=== PATIENT | male | born 1965 | race Caucasian/White ===

== ENCOUNTER 2017-01-14 20:52 | Emergency (ER) | payer OTHER ==
[2017-01-14 21:02] VITALS: BP 153/80; PULSE 68; RESP 20; TEMP 97.5; O2SAT 96; BMI 24.2
[2017-01-14] MEDS ORDERED: Albuterol-Ipratrop 3 mg / 0.5 (3 ml) UD IH STA (21:50)
--- NOTE | 2017-01-14 22:34 | ED PDOC ---
Arrival/HPI - General Chief Complaint: Cough, Cold, Congestion Time Seen by Provider: 01/14/17 21:32 Historian: Patient - History of Present Illness Narrative History of Present Illness (Text): 01/15/17 00:40 51 yo M w/ no PMH, c/o 2 day h/o dry cough, unrelieved with OTC cough medication. Denies any SOB, chest pain, fever, chills, recent travel, back pain , N/V, sore throat or rash. States that he is not a smoker. Past Medical History - Provider Review Nursing Documentation Reviewed: Yes - Cardiac Hx Cardiac Disorders: No - Pulmonary Hx Respiratory Disorders: No - Neurological Hx Neurological Disorder: No - HEENT Hx HEENT Disorder: No - Renal Hx Renal Disorder: No - Endocrine/Metabolic Hx Endocrine Disorders: No - Hematological/Oncological Hx Blood Disorders: No - Integumentary Hx Dermatological Disorder: No - Musculoskeletal/Rheumatological Hx Musculoskeletal Disorders: No - Gastrointestinal Hx Gastrointestinal Disorders: No - Genitourinary/Gynecological Hx Genitourinary Disorders: No - Psychiatric Hx Psychophysiologic Disorder: No Hx Substance Use: No Family/Social History - Physician Review Nursing Documentation Reviewed: Yes Family/Social History: No Known Family HX Smoking Status: Heavy Smoker > 10 Cigarettes Daily Hx Alcohol Use: Yes Hx Substance Use: No Allergies/Home Meds Allergies/Adverse Reactions: Allergies No Known Allergies Allergy (Verified 01/14/17 21:03) Review of Systems - Review of Systems Constitutional: Normal. absent: Fatigue, Weight Change, Fevers ENT: Normal. absent: Sore Throat, Rhinorrhea, Sinus Congestion Respiratory: Normal, Cough. absent: SOB, Sputum, Wheezing Cardiovascular: Normal. absent: Chest Pain, Palpitations, Edema Musculoskeletal: Normal. absent: Arthralgias, Back Pain, Neck Pain Skin: Normal. absent: Rash, Pruritis, Skin Lesions Physical Exam - Physical Exam Narrative Physical Exam (Text): 01/15/17 00:42 GENERAL APPEARANCE: Patient is awake, alert, oriented x 3, in no acute distress. SKIN: Warm, dry; (-) cyanosis. EYES: (-) conjunctival pallor. ENMT: Mucous membranes moist. Airway patent: (-) stridor. Pharynx: (-) swelling, (-) erythema, (-) exudate. NECK: (-) tenderness, (-) stiffness, (-) lymphadenopathy. CHEST AND RESPIRATORY: (-) rhonchi, (-) rales, (-) wheezes, (-) pleural rub; breath sounds equal bilaterally. HEART AND CARDIOVASCULAR: (-) irregularity; (-) murmur, (-) gallop. ABDOMEN AND GI: Soft; (-) tenderness. EXTREMITIES: (-) deformity; (-) edema. NEURO AND PSYCH: Mental status as above. Cranial nerves grossly intact; strength symmetric. Vital Signs Temp Pulse Resp BP Pulse Ox 01/14/17 21:03 97.5 F L 68 20 153/80 H 96 01/14/17 21:02 97.5 F L 68 20 153/80 H 96 Medical Decision Making ED Course and Treatment: 01/15/17 00:43 51 yo M w/ no PMH, c/o 2 day h/o dry cough, unrelieved with OTC cough medication. Plan : - duoneb On re-evaluation, patient is sitting comfortably in no acute distress, remains awake, alert and oriented x3. Patient reports no SOB or chest pain at this time. Patient's breathing is easy and unlabored, speaking in full sentences. Lungs are CTA with no wheezing and no rhonchi. Dx of cough, bronchitis d/w the patient. Advised to follow up with primary care physician in 1-2 days without fail. Advised to take medication as prescribed. Return to the emergency room at any time for any new or worsening symptoms. Patient states he fully agrees with and understands discharge instructions. States that he agrees with the plan and disposition. Verbalized and repeated discharge instructions and plan. I have given the patient opportunity to ask any additional questions. 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 Disposition/Present on Arrival - Present on Arrival Any Indicators Present on Arrival: No History of DVT/PE: No History of Uncontrolled Diabetes: No Urinary Catheter: No History of Decub. Ulcer: No History Surgical Site Infection Following: None - Disposition Have Diagnosis and Disposition been Completed?: Yes Diagnosis: Cough, Bronchitis Disposition: HOME/ ROUTINE Disposition Time: 22:15 Patient Plan: Discharge Condition: STABLE Discharge Instructions (ExitCare): Acute Bronchitis (ED) Print Language: DIVEHI Additional Instructions: Thank you for letting us take care of you today. You were treated for cough, bronchitis. The emergency medical care you received today was directed at your acute symptoms. If you were prescribed any medication, please fill it and take as directed. It may take several days for your symptoms to resolve. Return to the Emergency Department if your symptoms worsen, do not improve, or if you have any other problems. Please contact your doctor in 2 days for re-evaluation and follow up. Bring any paperwork you were given at discharge with you along with any medications you are taking to your follow up visit. Our treatment cannot replace ongoing medical care by a primary care provider (PCP) outside of the emergency department. Thank you for allowing the [facility] team to be part of your care today. Prescriptions: Albuterol 0.083% [Albuterol Sulfate 3 Ml] 3 ml IH Q4 #100 neb Nebulizer [Aeroeclipse II] 1 each MC DAILY #1 each [facility]: [facility] [[facility] Care Provider[facility] - Follow up with primary Forms: [employer] (Telugu), WORK NOTE
== END 2017-01-14 22:55 | disposition home or self-care (01) ==
LOC: ED 20:52
DX: J40 Bronchitis, not specified as acute or chronic (principal); F17.210 Nicotine dependence, cigarettes, uncomplicated

== ENCOUNTER 2018-02-10 19:57 | Emergency (ER) | payer OTHER ==
[2018-02-10 19:58] VITALS: BMI 24.2
[2018-02-10 20:21] VITALS: RESP 18
--- NOTE | 2018-02-10 20:22 | ED PDOC ---
Arrival/HPI - General Chief Complaint: Groin Pain Time Seen by Provider: 02/10/18 19:59 Historian: Patient - History of Present Illness Narrative History of Present Illness (Text): 02/10/18 20:20 52 y/o male, no significant pmh, nkda, c/o rt. groin pain x 3-4 days after heavy lifting. Aching pain, aggravated by coughing, no urinary symptoms, no testicular pain, no night sweat, no rash, no night sweat, no dizziness, no nausea/vomiting/diarrhea, no change in vision, eating and drinking well, no other medical or psychological complaints. Past Medical History - Provider Review Nursing Documentation Reviewed: Yes - Cardiac Hx Cardiac Disorders: No - Pulmonary Hx Respiratory Disorders: No - Neurological Hx Neurological Disorder: No - HEENT Hx HEENT Disorder: No - Renal Hx Renal Disorder: No - Endocrine/Metabolic Hx Endocrine Disorders: No - Hematological/Oncological Hx Blood Disorders: No - Integumentary Hx Dermatological Disorder: No - Musculoskeletal/Rheumatological Hx Musculoskeletal Disorders: No - Gastrointestinal Hx Gastrointestinal Disorders: No - Genitourinary/Gynecological Hx Genitourinary Disorders: No - Psychiatric Hx Psychophysiologic Disorder: No Hx Substance Use: No - Anesthesia Hx Anesthesia: No Hx Anesthesia Reactions: No Hx Malignant Hyperthermia: No Family/Social History - Physician Review Nursing Documentation Reviewed: Yes Family/Social History: Unknown Family HX Smoking Status: Former Smoker Hx Alcohol Use: Yes Frequency of alcohol use: Socially Hx Substance Use: No Allergies/Home Meds Allergies/Adverse Reactions: Allergies No Known Allergies Allergy (Verified 01/14/17 21:03) Review of Systems - Review of Systems Constitutional: absent: Fevers Eyes: absent: Vision Changes ENT: absent: Hearing Changes Respiratory: absent: SOB, Cough Cardiovascular: absent: Chest Pain Gastrointestinal: absent: Abdominal Pain, Nausea, Vomiting Genitourinary Male: Other (+rt. groin pain). absent: Dysuria, Frequency Musculoskeletal: absent: Arthralgias, Back Pain Skin: absent: Rash, Pruritis Psychiatric: absent: Anxiety, Depression, Suicidal Ideation Physical Exam Vital Signs Reviewed: Yes Pain Distress: Moderate - Systems Exam Head: Present: Atraumatic, Normocephalic Pupils: Present: PERRL Extroacular Muscles: Present: EOMI Conjunctiva: Present: Normal Mouth: Present: Moist Mucous Membranes Neck: Present: Normal Range of Motion Respiratory/Chest: Present: Clear to Auscultation, Good Air Exchange. No: Respiratory Distress, Accessory Muscle Use Cardiovascular: Present: Regular Rate and Rhythm, Normal S1, S2. No: Murmurs Abdomen: No: Tenderness, Distention, Peritoneal Signs Genitourinary Male: Present: Normal External Genitalia, Circumcised Penis, Hernias (rt. inguinal easily reducible hernia, reduced now). No: Lesions, Penile Discharge, Testicle Tenderness, Penile Swelling, Masses, Erythema, Testicle Swelling Back: Present: Normal Inspection Upper Extremity: Present: Normal Inspection. No: Cyanosis, Edema Lower Extremity: Present: Normal Inspection. No: Edema Neurological: Present: GCS=15, CN II-XII Intact, Speech Normal, Motor Func Grossly Intact, Gait Normal, Memory Normal Skin: Present: Warm, Dry, Normal Color. No: Rashes Psychiatric: Present: Alert, Oriented x 3, Normal Insight, Normal Concentration Medical Decision Making ED Course and Treatment: 02/10/18 20:22 -Testicular sonogram -UA -Toradol IM 02/10/18 21:58 -Sonogram show Bilateral varicoceles. Bilateral epididymal head cysts. -UA show no UTI -Pt. has no pain now, eating and drinking well, no incarcerated hernia. -Discharge home with motrin, stay hydrated, avoid heavy lifting, follow up with your own pmd and urologist/general surgeon within 2 days, return to the ER for any new or worsening signs or symptoms. - RAD Interpretation Radiology Orders: 02/10/18 20:19 TESTES DUPLEX COMPLETE [US] Stat History Right groin pain. Technique Realtime sonography through the scrotum with color and doppler flow. Comparison None Available. Findings Right Testicle Measures 4.25 x 1.86 x 2.56 cm. Normal echotexture and flow. Right Epididymis Epididymal head measures 0.27 x 0.24 x 0.99 cm. Epididymal cyst measures 0.27 x 0.24 x 0.3 cm. Left Testicle Measures 3.78 x 1.96 x 2.41 cm. Normal echotexture and flow. Left Epididymis Epididymal head measures 0.87 x 0.84 x 0.68 cm. Epididymal cyst measures 0.6 x 0.35 x 0.5 cm. Hydrocele None. Varicocele Bilateral varicoceles. Other Findings None. Impression 1. Bilateral varicoceles. 2. Bilateral epididymal head cysts. Electronically signed on Feb 10, 2018 9:22:39 PM EST by: Jose Romo M.D., ISAAC Certified By [facility] Fellowship Trained MRI and CT Specialist Crop Farm Helper: Radiologist - PA / MAILING SPECIALIST / Resident Statement MD/DO has reviewed & agrees with the documentation as recorded. Disposition/Present on Arrival - Present on Arrival Any Indicators Present on Arrival: No History of DVT/PE: No History of Uncontrolled Diabetes: No Urinary Catheter: No History of Decub. Ulcer: No History Surgical Site Infection Following: None - Disposition Have Diagnosis and Disposition been Completed?: Yes Diagnosis: Bilateral varicoceles, Epididymal cyst, Inguinal hernia Disposition: HOME/ ROUTINE Disposition Time: 21:36 Patient Plan: Discharge Patient Problems: Current Active Problems Problem Status Onset Bilateral varicoceles Acute Epididymal cyst Acute Inguinal hernia Acute Condition: IMPROVED Additional Instructions: -Discharge home with motrin, stay hydrated, avoid heavy lifting, follow up with your own pmd and urologist/general surgeon within 2 days, return to the ER for any new or worsening signs or symptoms. Prescriptions: Ibuprofen [Motrin Tab] 600 mg PO QID PRN #30 tab PRN Reason: Other Referrals: Nisha Toscano MD [Staff Provider] - Follow up with primary Delta Hemphill MD [Staff Provider] - Follow up with primary [facility] [Outside] - Follow up with primary Forms: [employer] (Malay), WORK NOTE
[2018-02-10 21:48] LABS: URINE APPEARANCE CLEAR (CLEAR); URINE BILIRUBIN NEGATIVE (NEGATIVE); URINE BLOOD TRACE-LYSED (NEGATIVE); URINE COLOR YELLOW (YELLOW); URINE GLUCOSE (UA) NEGATIVE (NEGATIVE); URINE LEUKOCYTE ESTERASE NEGATIVE Leu/uL (NEGATIVE); URINE PROTEIN NEGATIVE mg/dL (<30 mg/dL); URINE UROBILINOGEN 0.2 E.U./dL (<1 E.U./dL)
[2018-02-10 21:52] LABS: URINE BACTERIA NEG (NEG); URINE RBC 0 - 2 /hpf (0-2); URINE WBC NEGATIVE /hpf (0-6)
[2018-02-10 22:35] VITALS: BP 148/86; PULSE 80; TEMP 97.7; O2SAT 96
--- NOTE | 2018-02-11 11:07 | US ---
Date of service: 02/10/2018 HISTORY: rt. groin pain TECHNIQUE: Realtime sonography through the scrotum with color and doppler flow. COMPARISON: None Available. FINDINGS: RIGHT TESTICLE: Measures 4.25 x 1.86 x 2.56 cm. Normal echotexture and flow. RIGHT EPIDIDYMIS: Epididymal head measures 0.27 x 0.24 x 0.99 cm. There is a small 2 mm epididymal cyst LEFT TESTICLE: Measures 3.78 x 1.96 x 2.41 cm. Normal echotexture and flow. LEFT EPIDIDYMIS: Epididymal head measures 0.87 x 0.84 x 0.68 cm. 6 mm cyst HYDROCELE: None. VARICOCELE: Bilateral varicoceles OTHER FINDINGS: The report concurs with the preliminary [facility] report IMPRESSION: No evidence of torsion. Bilateral varicoceles.
== END 2018-02-10 22:16 | disposition home or self-care (01) ==
LOC: ED 19:57
DX: I86.1 Scrotal varices (principal); N50.3 Cyst of epididymis; K40.90 Unilateral inguinal hernia, without obstruction or gangrene, not specified as recurrent; Z87.891 Personal history of nicotine dependence
CPT/HCPCS: 81001; 93975; 96372; 99282; J1885

== ENCOUNTER 2018-04-21 13:47 | Emergency (ER) | payer OTHER ==
[2018-04-21 14:19] VITALS: BMI 25.2
[2018-04-21 14:26] VITALS: RESP 18
--- NOTE | 2018-04-21 14:57 | ED PDOC ---
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 Patient reports episodes of shortness of breath associated with chest tightness, last episode yesterday. Patient informs associated generalized itchiness ongoing for years. 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 Patient denies any medical complaints. Patient denies any fevers, chills, headache, dizziness, dyspnea on exertion, cough, abdominal pain, nausea, vomiting, diarrhea, back pain, neck pain, or any other complaints. PMD: Dr. Peña Time/Duration: > month Symptom Onset: Gradual Symptom Course: Unchanged Activities at Onset: Light Context: Home Past Medical History - Provider Review Nursing Documentation Reviewed: Yes - Infectious Disease Hx of Infectious Diseases: None - Cardiac Hx Cardiac Disorders: No - Pulmonary Hx Respiratory Disorders: No - Neurological Hx Neurological Disorder: No - HEENT Hx HEENT Disorder: No - Renal Hx Renal Disorder: No - Endocrine/Metabolic Hx Endocrine Disorders: No - Hematological/Oncological Hx Blood Disorders: No - Integumentary Hx Dermatological Disorder: No - Musculoskeletal/Rheumatological Hx Musculoskeletal Disorders: No - Gastrointestinal Hx Gastrointestinal Disorders: No - Genitourinary/Gynecological Hx Genitourinary Disorders: No - Psychiatric Hx Psychophysiologic Disorder: No Hx Substance Use: No - Anesthesia Hx Anesthesia: No Hx Anesthesia Reactions: No Hx Malignant Hyperthermia: No Family/Social History - Physician Review Nursing Documentation Reviewed: Yes Family/Social History: No Known Family HX Smoking Status: Former Smoker Hx Alcohol Use: Yes Hx Substance Use: No Allergies/Home Meds Allergies/Adverse Reactions: Allergies No Known Allergies Allergy (Verified 01/14/17 21:03) Review of Systems - Physician Review All systems were reviewed & negative as marked: Yes - Review of Systems Constitutional: absent: Fevers Respiratory: SOB. absent: Cough Cardiovascular: Chest Pain Gastrointestinal: absent: Abdominal Pain, Diarrhea, Nausea, Vomiting Genitourinary Male: absent: Dysuria, Urinary Output Changes Musculoskeletal: absent: Back Pain, Neck Pain Skin: absent: Rash Neurological: absent: Headache, Dizziness Physical Exam - Physical Exam Narrative Physical Exam (Text): 04/21/18 14:57 Gen: VS reviewed, alert, well developed, well nourished, nontoxic, mild distress. Mild tremors noted at rest. ENT: normal pharynx. Eye: EOMI, PERRL. Neck: no JVD, supple, no adenopathy. CV: regular rate, regular rhythm, no rubs, no murmur, no gallops, S1, S2, pulses equal and strong. Pulm: no distress, clear to auscultation, no wheeze, no rhonchi, breath sounds equal, no rales. Abd: soft, nontender, no guarding, no rebound, no rigidity, normal bowel sounds. Ext: no edema. Skin: good color, no rash, no cyanosis. Psych: responds appropriately to questions, normal affect. Neuro: oriented x 3, CN2-12 intact grossly, motor intact, sensation intact. Normal finger to nose. Normal heel to perkins test. Gait normal. Vital Signs Reviewed: Yes Vital Signs Temp Pulse Resp BP Pulse Ox 04/21/18 13:48 97.5 F L 65 18 136/72 99 Temperature: Afebrile Blood Pressure: Normal Pulse: Regular Respiratory Rate: Normal Appearance: Positive for: Well-Appearing, Non-Toxic, Comfortable Pain Distress: Mild Mental Status: Positive for: Alert and Oriented X 3 Medical Decision Making ED Course and Treatment: 04/21/18 14:49 Impression: 53 year old male presents to the ED for evaluation of episodes of chest tightness ongoing for weeks. Plan: -- CT of Head -- EKG -- Labs -- Chest X-ray -- Reassess and disposition Prior Visits: Notes and results from previous visits were reviewed. Progress Notes: 04/21/18 16:[address] peña, libert[place]. patient to be admitted for chest pain, rule out ACS. there is no sig clinical suspicion for PE or aortic dissection. consult to dr. trevizo. 04/21/18 16:40 The patient is choosing to leave against medical advice. I have personally explained to the patient that choosing to do so may result in permanent bodily harm, disability, or . I have discussed at great length that without further evaluation and monitoring there may be unforeseen circumstances and/or d eterioration causing permanent bodily harm or as a result of their choice. The patient is alert, oriented, and shows the mental capacity to make clear decisions regarding the patients health care at this time. The patient continues to wish to leave against medical advice. In light of the patients decision to leave against medical advice, follow-up has been arranged and the patient is aware of the importance to following up as instructed. The patient has been advised that they should return to the emergency room immediately if they change their mind at any time, or if their condition begins to change or worsen in any way. - RAD Interpretation Narrative RAD Interpretations (Text): 04/21/18 15:41 CT of Head reviewed by radiologist, shows: FINDINGS: HEMORRHAGE: No intracranial hemorrhage. BRAIN: No mass effect or edema. No atrophy or chronic microvascular ischemic changes. VENTRICLES: Unremarkable. No hydrocephalus. CALVARIUM: Unremarkable. PARANASAL SINUSES: Unremarkable as visualized. No significant inflammatory changes. MASTOID AIR CELLS: Unremarkable as visualized. No inflammatory changes. OTHER FINDINGS: None. IMPRESSION: No acute intracranial findings Manager Clinical Research: Radiologist - EKG Interpretation EKG Interpretation (Text): 04/21/18 16:19 1400: sinus liana at 52 bpm, nonspecific intraventricular conduction delay, no acute sttw abn, no ectopy Interpreted by ED Physician: Yes - Scribe Statement The provider has reviewed the documentation as recorded by the Scribe Antony Gibbons. All medical record entries made by the Scribe were at my direction and personally dictated by me. I have reviewed the chart and agree that the record accurately reflects my personal performance of the history, physical exam, medical decision making, and the department course for this patient. I have also personally directed, reviewed, and agree with the discharge instructions and disposition. Disposition/Present on Arrival - Present on Arrival Any Indicators Present on Arrival: No History of DVT/PE: No History of Uncontrolled Diabetes: No Urinary Catheter: No History of Decub. Ulcer: No History Surgical Site Infection Following: None - Disposition Have Diagnosis and Disposition been Completed?: Yes Diagnosis: Chest pain Disposition: HOSPITALIZED Disposition Time: 16:25 Patient Plan: Observation Patient Problems: Current Active Problems Problem Status Onset Chest pain Acute Condition: STABLE Discharge Instructions (ExitCare): Chest Pain (ED) Referrals: Saritha Peña MD [Primary Care Provider] - Follow up with primary Forms: [employer] (Ivorian)
[2018-04-21 15:25] LABS: BASO # 0.03 K/mm3 (0.0-2.0); BASO % 0.6 % (0.0-3.0); EOS # 0.1 (0.0-0.7); EOS % 2.1 % (1.5-5.0); LYMPH # 1.3 (1.2-3.4); LYMPH % 24.2 % (22.0-35.0); MEAN CELL VOLUME 87.5 fl (80.0-105.0); MEAN CORPUSCULAR HEMOGLOBIN 29.2 pg (25.0-35.0); MEAN CORPUSCULAR HGB CONC 33.3 g/dl (31.0-37.0); MEAN PLATELET VOLUME 9.2 fl (7.0-11.0); MONO # 0.3 (0.1-0.6); MONO % 6.2 % (1.0-6.0); RBC 4.8 10^6/uL (3.5-6.1); RED CELL DISTRIBUTION WIDTH 13.2 % (11.5-14.5); WHITE BLOOD COUNT 5.3 10^3/uL (4.5-11.0)
--- NOTE | 2018-04-21 15:27 | CT ---
Date of service: 04/21/2018 PROCEDURE: CT HEAD WITHOUT CONTRAST. HISTORY: gait imbalance COMPARISON: None available. TECHNIQUE: Axial computed tomography images were obtained through the head/brain without intravenous contrast. Radiation dose: Total exam DLP = 943.48 mGy-cm. This CT exam was performed using one or more of the following dose reduction techniques: Automated exposure control, adjustment of the mA and/or kV according to patient size, and/or use of iterative reconstruction technique. FINDINGS: HEMORRHAGE: No intracranial hemorrhage. BRAIN: No mass effect or edema. No atrophy or chronic microvascular ischemic changes. VENTRICLES: Unremarkable. No hydrocephalus. CALVARIUM: Unremarkable. PARANASAL SINUSES: Unremarkable as visualized. No significant inflammatory changes. MASTOID AIR CELLS: Unremarkable as visualized. No inflammatory changes. OTHER FINDINGS: None. IMPRESSION: No acute intracranial findings
[2018-04-21 15:35] LABS: INR 1.14; PARTIAL THROMBOPLASTIN TIME 35.8 Seconds (26.9-38.3); PROTHROMBIN TIME 12.6 SECONDS (9.4-12.5)
[2018-04-21 15:37] LABS: ALB/GLOB RATIO 1.3 (1.1-1.8); ALBUMIN 4.5 g/dL (3.0-4.8); ALT/SGPT 79 U/L (7-56); AST/SGOT 68 U/L (17-59); BILIRUBIN,DIRECT 0.2 mg/dL (0.0-0.4); BLOOD UREA NITROGEN 11 mg/dL (7-21); CALCIUM 9.3 mg/dL (8.4-10.5); GFR NON-AFRICAN AMERICAN > 60
[2018-04-21 15:48] LABS: TROPONIN I < 0.01 ng/mL
[2018-04-21 16:49] VITALS: BP 133/83; PULSE 67; TEMP 97.4; O2SAT 97
--- NOTE | 2018-04-21 17:21 | RAD ---
Date of service: 04/21/2018 HISTORY: chest pain COMPARISON: Aorta and IVC obscured by overlying bowel gas FINDINGS: LUNGS: No active pulmonary disease. PLEURA: No significant pleural effusion identified, no pneumothorax apparent. CARDIOVASCULAR: No atherosclerotic calcification present Normal. OSSEOUS STRUCTURES: No significant abnormalities. VISUALIZED UPPER ABDOMEN: Normal. OTHER FINDINGS: None. IMPRESSION: No active disease.
--- NOTE | 2018-04-21 22:08 | CARD ---
APPROVED REPORT Date of service: 04/21/2018 EKG Measurement Heart [id number] <Conclusion> Sinus bradycardia Otherwise normal ECG
== END 2018-04-21 16:50 | disposition left against medical advice (07) ==
LOC: ED 13:47
DX: R07.89 Other chest pain (principal); Z87.891 Personal history of nicotine dependence